=== PATIENT | female | born 1985 | race Hispanic/Latino ===

== ENCOUNTER → 2020-03-09 14:31 | Outpatient (CLI) | payer OTHER, MEDICAID, SELFPAY ==
--- NOTE | 2020-03-09 14:35 | DI.US.S_ITS ---
PROCEDURE: US OB <= 14 WEEKS FETUS INDICATIONS: Early dating viability OUTSIDE/PRIOR DATING DATA: Last menstrual period (LMP): Unknown . LMP-based estimated date of delivery (KAILYN): Unknown . First dating scan (date and location): 03/09/20 . Estimated date of delivery (KAILYN) from first dating scan: 10/05/20 . TECHNIQUE: Real-time scanning was performed of the fetus and maternal pelvic organs, with image documentation. Endovaginal scanning was also performed to better visualize the fetus and maternal ovaries. COMPARISON: None. FINDINGS: Embryo: Single living intrauterine fetus is present with a crown-rump length measuring 3.1 cm, 10 weeks 0 days. heart rate measures 162 beats per minute. Measurement variability in dating: +/- 4 weeks by LMP, +/- 7 days by mean sac diameter (use before 6 weeks gestation if crown-rump length not able to be measured), +/- 5 days by crown-rump length (up to 8 weeks 6 days gestation), +/- 7 days by crown-rump length (up to 13 weeks 6 days gestation). Maternal organs: Ovaries unremarkable bilaterally except for a presumed right-sided corpus luteum . Limited images through the kidneys demonstrate no hydronephrosis. IMPRESSION: Single living intrauterine fetus with a gestational age measuring 10 weeks and 0 days by today's ultrasound measurements corresponding to an KAILYN of 10/05/20. Dictated by: David Piña M.D. on 03/09/2020 at 16:55 Approved by: David Piña M.D. on 03/09/2020 at 16:56
== END ==
PROVIDERS: Family Provider Family Medicine; PCP Family Medicine; Referring Provider Family Medicine; Visit Provider Family Medicine
DX: Z34.81 Encounter for supervision of other normal pregnancy, first trimester (principal); Z3A.10 10 weeks gestation of pregnancy
CPT/HCPCS: 76801; 76817

== ENCOUNTER → 2020-04-01 16:51 | Outpatient (CLI) | payer MEDICAID, SELFPAY ==
[2020-04-01 17:38] LABS: Appearance Urine UA CLEAR; Bilirubin Urine UA NEGATIVE (NEGATIVE); Color Urine UA YELLOW; Glucose Urine UA NEGATIVE (Negative); Ketones Urine UA NEGATIVE (NEGATIVE); Leukocyte Esterase Urine UA NEGATIVE (NEGATIVE); Nitrite Urine UA NEGATIVE (Negative); Occult Blood Urine UA TRACE-INTACT (Negative); Protein Urine UA NEGATIVE (Negative); Urobilinogen Urine UA 0.2 E.U./dL (0.2)
[2020-04-01 17:38] LABS: Add Manual Diff / Slide Review NO; Basophils Absolute Auto 0 /uL (0-100); Basophils Percent Auto 0.4 % (0-2); Eosinophils Absolute Auto 100 /uL (0-450); Eosinophils Percent Auto 0.7 % (2-4); Hematocrit 37.5 % (36-46); Hemoglobin 12.7 g/dL (12.0-16.0); Lymphocytes Absolute Auto 2000 /uL (1100-4500); Lymphocytes Percent Auto 18.5 % (25-40); Mean Corpuscular HGB Conc 33.9 % (30-36); Mean Corpuscular Volume 85.8 fL (80-100); Monocytes Absolute Auto 700 /uL (0-900); Monocytes Percent Auto 6.1 % (3-14); Neutrophils Absolute Auto 7900 /uL (1500-7000); Neutrophils Percent Auto 74.3 % (50-75); Platelet Count 184 X10^3/uL (150-400); Red Blood Cell Count 4.37 X10^6/uL (4.0-5.2); Red Cell Distribution Width 12.7 % (11.6-14.8); White Blood Cell Count 10.6 X10^3/uL (4.5-11.0)
[2020-04-02 06:39] LABS: Varicella IgG Antibody 3244 index (Immune >165)
[2020-04-02 07:40] LABS: RPR Screen Non Reactive (Non Reactive)
[2020-04-02 15:30] LABS: Hepatitis B Surface Antigen NEGATIVE s/c (NEGATIVE); Rubella Antibody IgG 73.7 IU/mL (>15)
[2020-04-02 16:03] LABS: HIV 1 & 2 Ab/Ag 4th Gen Combo NEGATIVE (NEGATIVE); Hep C Virus Ab w/Reflex Quant NEGATIVE s/c (NEGATIVE)
== END ==
PROVIDERS: Family Provider Family Medicine; PCP Family Medicine; Referring Provider Family Medicine; Visit Provider Family Medicine
DX: Z34.81 Encounter for supervision of other normal pregnancy, first trimester (principal)
CPT/HCPCS: 36415; 80055; 81003; 86787; 86803; 86850; 86900; 86901; 87086; 87389

== ENCOUNTER → 2020-05-04 10:44 | Outpatient (CLI) | payer MEDICAID, SELFPAY ==
[2020-05-06 20:10] LABS: AFP, Serum 41.9 ng/mL (.); Calc Gestational Age EDD (.); Estriol, Free 1.04 ng/mL (.); Inhibin A, Dimeric 206.43 pg/mL (.); Maternal Ethnicity Other (.); Maternal Weight 229 lbs (.); Number of Fetuses No (.); OSBR Risk 1 IN 5748 (.); Results Report (.); Test Results *Screen Negative* (.); hCG, Serum 32480 mIU/mL (.)
== END ==
PROVIDERS: Family Provider Family Medicine; PCP Family Medicine; Referring Provider Family Medicine; Visit Provider Family Medicine
DX: N89.8 Other specified noninflammatory disorders of vagina (principal); Z3A.18 18 weeks gestation of pregnancy
CPT/HCPCS: 36415; 82105; 82677; 84702; 86336; 87210

== ENCOUNTER → 2020-05-19 10:43 | Outpatient (CLI) | payer MEDICAID, SELFPAY ==
--- NOTE | 2020-05-19 10:44 | DI.US.S_ITS ---
PROCEDURE: US OB >= 14 WEEKS FETUS INDICATIONS: ANATOMY OUTSIDE/PRIOR DATING DATA: First dating scan (date and location): 03/09/2020 . Estimated date of delivery (KAILYN) from first dating scan: 10/05/2020 . TECHNIQUE: Real-time scanning was performed of the fetus, with image documentation and biometric measurements. Endovaginal scanning: No COMPARISON: None. FINDINGS: General: A single living intrauterine gestation is present. Presentation: Vertex. Placenta: Placental position is left fundal , without previa. Amniotic fluid index: 15.8 cm, normal range is 5-24 cm. heart rate: 165 beats per minute. Maternal cervical canal: 4.2 cm long. Normal lower limit is 2.5 cm. biometrics: Biparietal diameter: 20 weeks Head circumference: 19 weeks 2 days Abdominal circumference: 20 weeks 5 days Femur length: 19 weeks 6 days Estimated gestational age from initial scan: 20 weeks 1 day Composite gestational age from present scan: 20 weeks Estimated weight and percentile: 340 g; 58th percentile Measurement variability for biometric dating: +/- 7 days from 14 weeks to 15 weeks 6 days gestation, +/- 10 days from 16 weeks to 21 weeks 6 days gestation, +/- 2 weeks from 22 weeks to 27 weeks 6 days gestation, +/- 3 weeks for 28 weeks gestation or later. weight reference: 4500 g or EFW >90/95% is considered macrosomia or large for gestational age. EFW <10% is small for gestational age. EFW 5% or less is considered intra-uterine growth restriction. Anatomic survey: Neuro: Ventricles are non-dilated at less than 10 mm. Cisterna magna is normal at 3-11 mm. Cerebellum is normal in size and morphology. Nuchal skin fold: Normal at less than 6 mm between 14-21 weeks gestational age. Face: Nose and lips, facial profile are normal. Spine: Spine not well seen Heart: 4-chambered heart is present, with normal ventricular outflow tracts. Solitary left ventricular intracardiac focus. Diaphragm: Diaphragm is intact. Stomach: Left-sided stomach is present. Kidneys: No hydronephrosis. Normal is less than 5 mm in 2nd trimester, less than 7 mm in 3rd trimester. Cord: 3-vessel cord has orthotopic insertion. Bladder: Normal in size. Extremities: All 4 extremities identified. IMPRESSION: 1. Normal interval growth. 2. Echogenic intracardiac focus: 1.4-1.8 fold likelihood of Down syndrome. If isolated finding, consider aneuploidy screening with cell-free DNA. If aneuploidy screen is negative, no further evaluation needed. 3. spine not well visualized; otherwise normal anatomy. Follow-up recommended. Dictated by: Waqas FAM Interpreted: Tavares Dolan MD on 05/19/2020 at 15:08 Approved by: Tavares Dolan M.D. on 05/19/2020 at 15:38
== END ==
PROVIDERS: Family Provider Family Medicine; PCP Family Medicine; Referring Provider Family Medicine; Visit Provider Family Medicine
DX: Z36.89 Encounter for other specified antenatal screening (principal); Z3A.20 20 weeks gestation of pregnancy
CPT/HCPCS: 76811

== ENCOUNTER → 2020-06-07 14:42 | Outpatient (CLI) | payer MEDICAID, SELFPAY ==
--- NOTE | 2020-06-07 14:44 | DI.US.S_ITS ---
PROCEDURE: US OB FOLLOW UP INDICATIONS: spine not visualized on anatomy scan OUTSIDE/PRIOR DATING DATA: Last menstrual period (LMP): Not available. LMP-based estimated date of delivery (KAILYN): Not available. First dating scan (date and location): 03/09/2020 at . Estimated date of delivery (KAILYN) from first dating scan: 10/06/2019. TECHNIQUE: Real-time scanning was performed of the fetus, with image documentation and biometric measurements. Endovaginal scanning: Multiple phone COMPARISON: [facility], OB >= 14 WEEKS FETUS, 05/19/2020, 10:52. [facility], OB <= 14 WEEKS FETUS, 03/09/2020, 15:00. FINDINGS: General: A single living intrauterine gestation is present. Presentation: Transverse. Placenta: Placental position is fundal, without previa. Amniotic fluid index: 14.5 cm, normal range is 5-24 cm; largest pocket 4.1 cm. heart rate: 144 beats per minute. Maternal cervical canal: 6.2 cm long. Normal lower limit is 2.5 cm. biometrics: Not performed Estimated gestational age from initial scan: 22 weeks 6 days Measurement variability for biometric dating: +/- 7 days from 14 weeks to 15 weeks 6 days gestation, +/- 10 days from 16 weeks to 21 weeks 6 days gestation, +/- 2 weeks from 22 weeks to 27 weeks 6 days gestation, +/- 3 weeks for 28 weeks gestation or later. weight reference: 4500 g or EFW >90/95% is considered macrosomia or large for gestational age. EFW <10% is small for gestational age. EFW 5% or less is considered intra-uterine growth restriction. Other: spine is well seen and normal. IMPRESSION: 1. A single living intrauterine gestation is redemonstrated. 2. Normal spine. Dictated by: Devonte Bauman M.D. on 06/08/2020 at 9:37 Approved by: Devonte Bauman M.D. on 06/08/2020 at 9:44
== END ==
PROVIDERS: Family Provider Family Medicine; PCP Family Medicine; Referring Provider Family Medicine; Visit Provider Family Medicine
DX: Z36.2 Encounter for other antenatal screening follow-up (principal); Z3A.22 22 weeks gestation of pregnancy
CPT/HCPCS: 76816

== ENCOUNTER → 2020-06-26 08:00 | Outpatient (CLI) | payer MEDICAID, SELFPAY ==
[2020-06-26 10:17] LABS: Hematocrit 33.1 % (36-46); Hemoglobin 11.1 g/dL (12.0-16.0)
[2020-06-26 10:42] LABS: GTT (PREG) 1 Hour PP 50gm Dose 161 mg/dL (76-139)
== END ==
PROVIDERS: Family Provider Family Medicine; PCP Family Medicine; Referring Provider Family Medicine; Visit Provider Family Medicine
DX: Z34.90 Encounter for supervision of normal pregnancy, unspecified, unspecified trimester (principal); Z3A.26 26 weeks gestation of pregnancy
CPT/HCPCS: 36415; 82950; 85014; 85018

== ENCOUNTER → 2020-07-02 07:00 | Outpatient (CLI) | payer MEDICAID, SELFPAY ==
[2020-07-02 08:27] LABS: Glucose Fasting Gestational 80 mg/dL (76-95)
[2020-07-02 09:32] LABS: Glucose 1 Hour Gest 167 mg/dL (76-180)
[2020-07-02 10:07] LABS: Glucose 2 Hour Gest 137 mg/dL (76-155)
[2020-07-02 10:31] LABS: Glucose Tol Interp,Gestational INTERPRETATION
[2020-07-02 11:20] LABS: Glucose 3 Hour Gest 122 mg/dL (76-140)
== END ==
PROVIDERS: Family Provider Family Medicine; PCP Family Medicine; Referring Provider Family Medicine; Visit Provider Family Medicine
DX: Z34.90 Encounter for supervision of normal pregnancy, unspecified, unspecified trimester (principal); R73.09 Other abnormal glucose
CPT/HCPCS: 36415; 82951; 82952

== ENCOUNTER 2020-07-13 14:21 | Outpatient (CLI) | payer MEDICAID, SELFPAY ==
--- NOTE | 2020-07-13 15:29 | P.TNLD_ITS ---
Visit Information Visit Information Date of evaluation: 07/13/20 Primary OB Provider: Jena Perez On-call OB Provider: Kimberly Ferris Reason for Evaluation: Yes non-stress test non-stress test reason: other (Arrhythmia in clinic with doppler) Vital Signs Vital Signs: T 36.6 BP 120/74 P 100 PFSH Medical History Migraine SAB (spontaneous ) (~2006) (spontaneous vaginal delivery) (~04/03/03) Surgical History H/O dilation and curettage (~06/2006) H/O wisdom tooth extraction (~2006) Family History Mother No problems noted. Father No problems noted. Grandmother Depression Grandfather Alcoholic Grandmother Hyperlipidemia CVA (cerebral vascular accident) Grandfather Diabetes mellitus Family/Other Alcoholic Family/Other Diabetes mellitus Social History marital status: number of children: 3 household members: spouse and children lives independently: Yes pets and animals: No education level: high school occupational status: unemployed current occupational exposures/hazards: No raul/bahai: Alevism special raul needs: No Smoking Status: Never smoker second hand exposure: No alcohol intake: former (pre- : occasional 2X/month) substance use type: does not use Evaluation Evaluation Baseline heart rate: 150 Variability: Moderate (11-25) monitor accelerations: Present Monitor Decelerations: Absent Category of Tracing: Reactive Comments: Sporadic dropped beats to 50's with immediate return to baseline Diagnosis, Plan/Disposition Final Diagnosis (1) 28 weeks gestation of : Status: Acute (2) arrhythmia affecting , antepartum: Status: Acute Plan/Disposition Plan: 34-year-old at 28 weeks gestation here for NST due to arrhythmia heard Doppler in clinic today. NST showed a baseline of 150 with moderate variability and age-appropriate accelerations. There were very brief dropped beats down to the 50s with immediate return to baseline. Patient has already been referred to maternal medicine for recommendations. OB Disposition: home
== END 2020-07-13 15:48 | disposition home or self-care (01) ==
LOC: LABOR 14:39 → OB 07-14 16:21
PROVIDERS: Family Provider Family Medicine; PCP Family Medicine; Referring Provider Family Medicine; Visit Provider Family Medicine
DX: O36.8330 Maternal care for abnormalities of the fetal heart rate or rhythm, third trimester, not applicable or unspecified (principal); O26.23 Pregnancy care for patient with recurrent pregnancy loss, third trimester; Z3A.28 28 weeks gestation of pregnancy
CPT/HCPCS: 59025; G0378; G0379

== ENCOUNTER → 2020-09-07 13:47 | Outpatient (CLI) | payer MEDICAID, SELFPAY ==
[2020-09-08 19:39] LABS: Strep Grp B PCR NEG for Grp B Strep
== END ==
PROVIDERS: Family Provider Family Medicine; PCP Family Medicine; Visit Provider Family Medicine
DX: Z34.90 Encounter for supervision of normal pregnancy, unspecified, unspecified trimester (principal); Z3A.36 36 weeks gestation of pregnancy
CPT/HCPCS: 87653

== ENCOUNTER → 2020-09-21 14:00 | Outpatient (ROUT) | payer OTHER, MEDICAID, SELFPAY ==
[2020-09-21 15:34] LABS: Creatinine Urine Random 28.1 mg/dL
[2020-09-21 15:41] LABS: Microalbumi Creatinin Ratio Ur 110.3 ug/mg CR (<30); Microalbumin Urine Random 3.1 mg/dL (0-1.6)
== END ==
PROVIDERS: Family Provider Family Medicine; PCP Family Medicine; Visit Provider Family Medicine
DX: O16.3 Unspecified maternal hypertension, third trimester (principal)
CPT/HCPCS: 82043; 82570

== ENCOUNTER 2020-09-21 14:13 | Outpatient (CLI) | payer MEDICAID, SELFPAY ==
[2020-09-21 15:09] LABS: Add Manual Diff / Slide Review NO; Basophils Absolute Auto 0 /uL (0-100); Basophils Percent Auto 0.6 % (0-2); Eosinophils Absolute Auto 200 /uL (0-450); Eosinophils Percent Auto 1.8 % (2-4); Hematocrit 35.1 % (36-46); Hemoglobin 11.6 g/dL (12.0-16.0); Lymphocytes Absolute Auto 1800 /uL (1100-4500); Lymphocytes Percent Auto 20.5 % (25-40); Mean Corpuscular HGB Conc 33.1 % (30-36); Mean Corpuscular Hemoglobin 28.2 PG (26-34); Mean Corpuscular Volume 85.2 fL (80-100); Monocytes Absolute Auto 900 /uL (0-900); Monocytes Percent Auto 9.9 % (3-14); Neutrophils Absolute Auto 5800 /uL (1500-7000); Neutrophils Percent Auto 67.2 % (50-75); Platelet Count 154 X10^3/uL (150-400); Red Blood Cell Count 4.12 X10^6/uL (4.0-5.2); Red Cell Distribution Width 14.6 % (11.6-14.8); White Blood Cell Count 8.7 X10^3/uL (4.5-11.0)
[2020-09-21 15:24] LABS: Alanine Aminotransferase 12 IU/L (<35); Albumin 3.6 g/dL (3.5-5.0); Alkaline Phosphatase 176 U/L (38-126); Aspartate Aminotransferase 19 IU/L (14-36); BUN Creatinine Ratio 17.5 (6-22); Bilirubin Total 0.3 mg/dL (0.2-1.3); Blood Urea Nitrogen 7 mg/dL (7-17); Calcium 10.1 mg/dL (8.4-10.2); Carbon Dioxide 21 mmol/L (22-32); Chloride 107 mmol/L (98-107); Estimated Glomerular Filt Rate > 60.0 mL/min (>60); Globulin 3.6 g/dL (1.7-4.1); Glucose 70 mg/dL (70-100); HEMOLYSIS < 15 (0-50); Sodium 135 mmol/L (137-145); Total Protein 7.2 g/dL (6.3-8.2)
--- NOTE | 2020-09-21 16:04 | P.TNLD_ITS ---
Visit Information Visit Information Date of evaluation: 09/21/20 Primary OB Provider: Jena Perez Reason for Evaluation: Yes non-stress test non-stress test reason: hypertens ion/pre-eclampsia Vital Signs Vital Signs: Serial blood pressures 119/87, 132/75 135/60, 132/74, 129/71 [facility] Medical History Migraine SAB (spontaneous ) (~2006) (spontaneous vaginal delivery) (~04/03/03) Surgical History H/O dilation and curettage (~06/2006) H/O wisdom tooth extraction (~2006) Family History Mother No problems noted. Father No problems noted. Grandmother Depression Grandfather Alcoholic Grandmother Hyperlipidemia CVA (cerebral vascular accident) Grandfather Diabetes mellitus Family/Other Alcoholic Family/Other Diabetes mellitus Social History marital status: number of children: 3 household members: spouse and children lives independently: Yes pets and animals: No education level: high school occupational status: unemployed current occupational exposures/hazards: No raul/holiness: Episcopal special raul needs: No Smoking Status: Never smoker second hand exposure: No alcohol intake: former (pre- : occasional 2X/month) substance use type: does not use Objective Labs Result Diagrams: 09/21/20 15:02 09/21/20 15:02 Labs: Laboratory Results - last 24 hr 09/21/20 09/21/20 15:02 15:02 WBC 8.7 RBC 4.12 Hgb 11.6 L Hct 35.1 L MCV 85.2 MCH 28.2 MCHC 33.1 RDW 14.6 Plt Count 154 Neut % (Auto) 67.2 Lymph % (Auto) 20.5 L [place] % (Auto) 9.9 Eos % (Auto) 1.8 L Baso % (Auto) 0.6 Neut # (Auto) 5800 Lymph # (Auto) 1800 [place] # (Auto) 900 Eos # (Auto) 200 Baso # (Auto) 0 Sodium 135 L Potassium 4.0 Chloride 107 Carbon Dioxide 21 L BUN 7 Creatinine 0.40 L Estimated GFR > 60.0 BUN/Creatinine Ratio 17.5 Glucose 70 Calcium 10.1 Total Bilirubin 0.3 AST 19 ALT 12 Alkaline Phosphatase 176 H Total Protein 7.2 Albumin 3.6 Globulin 3.6 Albumin/Globulin Ratio 1.0 Evaluation Evaluation Baseline heart rate: 135 Variability: Moderate (11-25) monitor accelerations: Present Monitor Decelerations: Absent Category of Tracing: Reactive Laboratory results: Laboratory Tests 09/21/20 09/21/20 15:02 15:02 WBC 8.7 RBC 4.12 Hgb 11.6 L Hct 35.1 L MCV 85.2 MCH 28.2 MCHC 33.1 RDW 14.6 Plt Count 154 Neut % (Auto) 67.2 Lymph % (Auto) 20.5 L [place] % (Auto) 9.9 Eos % (Auto) 1.8 L Baso % (Auto) 0.6 Neut # (Auto) 5800 Lymph # (Auto) 1800 [place] # (Auto) 900 Eos # (Auto) 200 Baso # (Auto) 0 Sodium 135 L Potassium 4.0 Chloride 107 Carbon Dioxide 21 L BUN 7 Creatinine 0.40 L Estimated GFR > 60.0 BUN/Creatinine Ratio 17.5 Glucose 70 Calcium 10.1 Total Bilirubin 0.3 AST 19 ALT 12 Alkaline Phosphatase 176 H Total Protein 7.2 Albumin 3.6 Globulin 3.6 Albumin/Globulin Ratio 1.0 Diagnosis, Plan/Disposition Final Diagnosis (1) 38 weeks gestation of : Status: Acute Plan/Disposition Plan: 34-year-old 38 weeks gestation evaluated in the center due to elevated blood pressures in clinic. All blood pressures in the center were normal. As precaution, preeclampsia labs were done and normal. Patient is completely asymptomatic. She will follow-up as scheduled next week or call for new symptoms of headache, worsening edema, vision changes or abdominal pain. OB Disposition: home
== END 2020-09-21 15:47 | disposition home or self-care (01) ==
LOC: LABOR 14:38 → OB 09-22 09:00
PROVIDERS: Family Provider Family Medicine; PCP Family Medicine; Referring Provider Family Medicine; Visit Provider Family Medicine
DX: O13.3 Gestational [pregnancy-induced] hypertension without significant proteinuria, third trimester (principal); Z3A.38 38 weeks gestation of pregnancy
CPT/HCPCS: 36415; 59025; 80053; 82043; 82570; 85025; G0378; G0379

== ENCOUNTER 2020-10-05 14:04 | Inpatient (IN) | payer MEDICAID, SELFPAY ==
[2020-10-05 14:45] LABS: Add Manual Diff / Slide Review NO; Basophils Absolute Auto 0 /uL (0-100); Basophils Percent Auto 0.5 % (0-2); Eosinophils Absolute Auto 100 /uL (0-450); Eosinophils Percent Auto 1.1 % (2-4); Hematocrit 34.3 % (36-46); Hemoglobin 11.4 g/dL (12.0-16.0); Lymphocytes Absolute Auto 1600 /uL (1100-4500); Lymphocytes Percent Auto 19.4 % (25-40); Mean Corpuscular HGB Conc 33.2 % (30-36); Mean Corpuscular Hemoglobin 28.4 PG (26-34); Mean Corpuscular Volume 85.6 fL (80-100); Monocytes Absolute Auto 700 /uL (0-900); Monocytes Percent Auto 9.2 % (3-14); Neutrophils Absolute Auto 5600 /uL (1500-7000); Neutrophils Percent Auto 69.8 % (50-75); Platelet Count 141 X10^3/uL (150-400); Red Blood Cell Count 4.01 X10^6/uL (4.0-5.2); Red Cell Distribution Width 14.8 % (11.6-14.8); White Blood Cell Count 8.1 X10^3/uL (4.5-11.0)
[2020-10-05 15:02] LABS: Alanine Aminotransferase 13 IU/L (<35); Albumin 3.6 g/dL (3.5-5.0); Alkaline Phosphatase 177 U/L (38-126); Aspartate Aminotransferase 19 IU/L (14-36); BUN Creatinine Ratio 25.6 (6-22); Bilirubin Total 0.3 mg/dL (0.2-1.3); Blood Urea Nitrogen 10 mg/dL (7-17); Calcium 9.6 mg/dL (8.4-10.2); Carbon Dioxide 22 mmol/L (22-32); Chloride 103 mmol/L (98-107); Estimated Glomerular Filt Rate > 60.0 mL/min (>60); Globulin 3.6 g/dL (1.7-4.1); Glucose 74 mg/dL (70-100); HEMOLYSIS < 15 (0-50); Potassium 4.1 mmol/L (3.4-5.1); Sodium 132 mmol/L (137-145); Total Protein 7.2 g/dL (6.3-8.2)
[2020-10-05 16:04] LABS: Protein (Total) Urine Random 20 mg/dL (0-12); Protein Creatinine Ratio Urine 0.83 GRAM/24H
--- NOTE | 2020-10-05 17:52 | P.HPOB_ITS ---
OB HPI Date/Time Date of admission: 10/05/20 Date Patient Seen: 10/05/20 Time Patient Seen: 17:00 History of Present Condition Chief complaint: Pre-eclampsia Narrative: Sirisha Stout is a 34 year old at 39 weeks and 2 days. She presented to clinic today for her regular OB check and was found to be hypertensive with blood pressure in the 150s over 90s x2. She was sent to the center where urine protein creatinine in ratio was elevated at 0.8, remaining labs were normal. Blood pressures were normal in the center. The decision was made to induce for preeclampsia without severe symptoms. She denies headaches, vision changes or right upper quadrant pain. She has had some lower extremity edema for the past several weeks which has not changed. was complicated by a arrhythmia noted at 28 weeks. She saw maternal medicine and the arrhythmia was not present at that time. No further workup was needed unless the arrhythmia recurred. Arrhythmia and did not recur. She strongly desires tubal ligation. The consent was signed at 34 weeks. OB history 04/03/2003 induction at 39 weeks and 5 days for gestational hypertension, 9 hour labor, of a 6 lb 5 oz male at [facility]. Breast-fed 8 months. 04/26/06 SAB 8 weeks 06/24/06 SAB at 10 weeks 07/12/07 elective induction at 40 weeks, 6 hour labor, of a 8 lb 10 oz male at [facility], breast-fed 6 months. 01/18/14 at 38 weeks, 8 hour labor, 7 lb 9 oz female at [facility], breast-fed 24 months. Indications Indication for induction OB: medical complication (Preeclampsia without severe features) History of Present care: good care, initiated at week # (13), number of visits (13) and pounds weight gain (24) Dating criteria: based on 1st trimester US only Ultrasounds: normal mid trimester US Obstetrical complications: preeclampsia Preadmission Labs Blood type: O (+) positive -: Antibody screen: negative, GBS status: negative, HBsAG: negative, HIV: negative and RPR/VDLR: negative HCT: 34.3 HCAB: negative PAP: Normal Quad screen: Normal 1 hr GTT: 161 3 hr GTT: 1 hr (167), 2 hr (137) and 3 hr (122) Fasting blood glucose: 80 Evaluation Evaluation Baseline heart rate: 130 Variability: Moderate (11-25) monitor accelerations: Absent Monitor Decelerations: Absent Category of Tracing: Reactive Laboratory results: Laboratory Tests 10/05/20 10/05/20 10/05/20 14:38 14:38 14:40 WBC 8.1 RBC 4.01 Hgb 11.4 L Hct 34.3 L MCV 85.6 MCH 28.4 MCHC 33.2 RDW 14.8 Plt Count 141 L Neut % (Auto) 69.8 Lymph % (Auto) 19.4 L [place] % (Auto) 9.2 Eos % (Auto) 1.1 L Baso % (Auto) 0.5 Neut # (Auto) 5600 Lymph # (Auto) 1600 [place] # (Auto) 700 Eos # (Auto) 100 Baso # (Auto) 0 Sodium 132 L Potassium 4.1 Chloride 103 Carbon Dioxide 22 BUN 10 Creatinine 0.39 L Estimated GFR > 60.0 BUN/Creatinine Ratio 25.6 H Glucose 74 Calcium 9.6 Total Bilirubin 0.3 AST 19 ALT 13 Alkaline Phosphatase 177 H Total Protein 7.2 Albumin 3.6 Globulin 3.6 Albumin/Globulin Ratio 1.0 U Random Total Protein 20 H Urine Creatinine 24.0 Protein/Creatinin Ratio 0.83 [facility] Medical History Migraine SAB (spontaneous ) (~2006) (spontaneous vaginal delivery) (~04/03/03) Surgical History H/O dilation and curettage (~06/2006) H/O wisdom tooth extraction (~2006) Family History Mother No problems noted. Father No problems noted. Grandmother Depression Grandfather Alcoholic Grandmother Hyperlipidemia CVA (cerebral vascular accident) Grandfather Diabetes mellitus Family/Other Alcoholic Family/Other Diabetes mellitus Social History marital status: number of children: 3 household members: spouse and children lives independently: Yes pets and animals: No education level: high school occupational status: unemployed current occupational exposures/hazards: No raul/anabaptist: Jainism special raul needs: No Smoking Status: Never smoker second hand exposure: No alcohol intake: former (pre- : occasional 2X/month) substance use type: does not use Meds Home Medications and Allergies Home Medications Medication Instructions Recorded Confirmed Type prenat.vits,may,[id number] 1 tab PO DAILY #90 tab 04/01/20 09/14/20 Rx Allergies Allergy/AdvReac Type Severity Reaction Status Date / Time No Known Drug Allergies Allergy Verified 09/14/20 13:27 Review of Systems Review of Systems ROS: Yes All systems reviewed with the patient and are negative except as otherwise documented Exam Vital Signs (past 8 hours): temperature 36.8? blood pressure 119/63 heart rate 86 Const General: healthy appearing and comfortable HENMT Head: normal to inspection Ears: hearing grossly normal bilaterally Eyes General: appearance normal, both eyes and all related structures Neck Neck: normal visual inspection Resp Effort & Inspection: normal respiratory effort Auscultation: clear to auscultation bilaterally Cardio Rate: regular rate Rhythm: regular rhythm Heart Sounds: no murmurs GI Other: Gravid External Female Exam: normal external appearance Manual OB Exam: dilated fingertip, effaced 50% and station high Uterus Location (Fundal Height): 41 Presentation: vertex Estimated Weight (lbs): 8 Back/Spine/Pelvis Back: normal to inspection Skin General: no rashes or lesions noted Extrem General: normal to inspection and edema ( trace edema bilaterally) Objective Labs Result Diagrams: 10/05/20 14:38 10/05/20 14:38 Labs: Laboratory Results - last 24 hr 10/05/20 10/05/20 10/05/20 14:38 14:38 14:40 WBC 8.1 RBC 4.01 Hgb 11.4 L Hct 34.3 L MCV 85.6 MCH 28.4 MCHC 33.2 RDW 14.8 Plt Count 141 L Neut % (Auto) 69.8 Lymph % (Auto) 19.4 L [place] % (Auto) 9.2 Eos % (Auto) 1.1 L Baso % (Auto) 0.5 Neut # (Auto) 5600 Lymph # (Auto) 1600 [place] # (Auto) 700 Eos # (Auto) 100 Baso # (Auto) 0 Sodium 132 L Potassium 4.1 Chloride 103 Carbon Dioxide 22 BUN 10 Creatinine 0.39 L Estimated GFR > 60.0 BUN/Creatinine Ratio 25.6 H Glucose 74 Calcium 9.6 Total Bilirubin 0.3 AST 19 ALT 13 Alkaline Phosphatase 177 H Total Protein 7.2 Albumin 3.6 Globulin 3.6 Albumin/Globulin Ratio 1.0 U Random Total Protein 20 H Urine Creatinine 24.0 Protein/Creatinin Ratio 0.83 Assessment and Plan Assessment and Plan Assessment and Plan narrative: This is a 34-year-old at 40 weeks gestation meeting criteria for preeclampsia without severe symptoms. Blood pressure has been monitored closely this with normal labs until today when urine protein creatinine ratio came back elevated at 0.8. Blood pressures have intermittently been elevated in clinic however all blood pressures have been normal in the center today. She is without any symptoms of headache, vision changes, right upper quadrant pain or worsening edema (she has had edema in the third trimester though not severe). Sykes score today is 5. Risks and benefits of induction reviewed. Strongly recommended induction now due to preeclampsia verses continuation of the . She is familiar with induction as she was induced for 2 of her 3 past deliveries. Reviewed increase risk of vacuum, forceps were with induction. Consent signed. Will proceed with Cervidil now followed by pitocin if needed. Monitor blood pressures though all have been normal thus far. She also desires tubal ligation. Consent was signed well in advance. Discussed with Dr. Yee who is vascular surgeon tomorrow. Will notify Dr. Yee after delivery to determine timing with the OR.
[2020-10-05 18:16] LABS: COVID19 - ADMIT (NP swab/PCR) Negative (Negative)
[2020-10-05 18:25] LABS: Add Manual Diff / Slide Review NO; Basophils Absolute Auto 0 /uL (0-100); Basophils Percent Auto 0.5 % (0-2); Eosinophils Absolute Auto 100 /uL (0-450); Eosinophils Percent Auto 0.6 % (2-4); Hemoglobin 11.6 g/dL (12.0-16.0); Lymphocytes Absolute Auto 1600 /uL (1100-4500); Lymphocytes Percent Auto 16.2 % (25-40); Mean Corpuscular HGB Conc 34.2 % (30-36); Mean Corpuscular Hemoglobin 28.9 PG (26-34); Mean Corpuscular Volume 84.6 fL (80-100); Monocytes Absolute Auto 700 /uL (0-900); Monocytes Percent Auto 6.9 % (3-14); Neutrophils Absolute Auto 7500 /uL (1500-7000); Neutrophils Percent Auto 75.8 % (50-75); Platelet Count 140 X10^3/uL (150-400); Red Blood Cell Count 4.02 X10^6/uL (4.0-5.2); Red Cell Distribution Width 14.8 % (11.6-14.8); White Blood Cell Count 9.9 X10^3/uL (4.5-11.0)
[2020-10-05] MEDS: DINOPROSTONE VAG (CERVIDIL) 10 MG VAG (18:39)
[2020-10-05] MEDS: CALCIUM CARBONATE 500 MG TAB 1000 MG PO (21:09)
[2020-10-05 22:41] VITALS: BP 136/77
[2020-10-06] MEDS: CALCIUM CARBONATE 500 MG TAB 1000 MG PO ×2 (00:48→08:07)
--- NOTE | 2020-10-06 07:30 | P.PNOB_ITS ---
Date/Time Date Patient Seen: 10/06/20 Time Patient Seen: 07:30 Pain Control Pain control: tolerating well Comments: No complaints from patient. Cervidil fell out about 4:30 this morning. She is feeling contractions but less intense since Cervidil fell out. Denies FELIPE though she had a mild FELIPE during the night. She slept very little, maybe 2 hours. Still desires tubal ligation after delivery. Pelvic Exam Dilation (cm): 3 Effacement (%): 70 station: -3 Amniotic membrane status: Intact Contractions Contraction frequency (min): 5 Status status: Category l Heart Rate Baseline: 130 Monitor Accelerations: Present Monitor Decelerations: Absent Monitor Variability: Moderate Assessment and Plan Plan: begin patient augmentation Comments: 34 year old at 40 weeks and 1 day here for induction for pre- eclampsia without severe features. She received Cervidil overnight with good cervical change. Syeks score this morning is 8. She had a couple elevated blood pressures overnight but no sustained severe range pressures requiring medication and she is asymptomatic with normal reflexes. Repeat pre-eclampsia labs this morning. Will start pitocin. Epidural upon request. Anticipate . Will notify Dr. Yee after delivery for tubal ligation.
[2020-10-06] MEDS: LACTATED RINGERS 1,000 ML 100 ML IV (08:14)
[2020-10-06] MEDS: OXYTOCIN PREMIX 30 UNIT/500 ML PLAST..BAG IV (08:16)
--- NOTE | 2020-10-06 10:38 | PM.OBPNLAB ---
Date/Time Date Patient Seen: 10/06/20 Time Patient Seen: 10:30 Pain Control Pain control: tolerating well Comments: Feeling contractions a bit more, rates pain 6/10. Considering an epidural soon. Pelvic Exam Dilation (cm): 4 Effacement (%): 70 station: -3 Amniotic membrane status: Ruptured (Small amount of clear fluid) Contractions Pitocin rate (mU/min): 6 Contraction frequency (min): 3 Status status: Category l Heart Rate Baseline: 130 Monitor Accelerations: Present Monitor Decelerations: Absent Monitor Variability: Moderate Assessment and Plan Assessment: induction ongoing Comments: Making progress on pitocin, AROM with clear fluid. Patient would like an epidural in the near future. Anticipate . Blood pressures mildly elevated though not severe range requiring medication.
[2020-10-06 11:02] LABS: Add Manual Diff / Slide Review NO; Basophils Absolute Auto 0 /uL (0-100); Basophils Percent Auto 0.4 % (0-2); Eosinophils Absolute Auto 100 /uL (0-450); Eosinophils Percent Auto 0.5 % (2-4); Hematocrit 35.1 % (36-46); Hemoglobin 11.7 g/dL (12.0-16.0); Lymphocytes Absolute Auto 1300 /uL (1100-4500); Lymphocytes Percent Auto 12.8 % (25-40); Mean Corpuscular HGB Conc 33.4 % (30-36); Mean Corpuscular Hemoglobin 28.5 PG (26-34); Mean Corpuscular Volume 85.3 fL (80-100); Monocytes Absolute Auto 800 /uL (0-900); Monocytes Percent Auto 7.3 % (3-14); Neutrophils Absolute Auto 8200 /uL (1500-7000); Platelet Count 142 X10^3/uL (150-400); Red Blood Cell Count 4.11 X10^6/uL (4.0-5.2); Red Cell Distribution Width 14.6 % (11.6-14.8); White Blood Cell Count 10.4 X10^3/uL (4.5-11.0)
[2020-10-06 11:17] LABS: Alanine Aminotransferase 14 IU/L (<35); Albumin 3.6 g/dL (3.5-5.0); Albumin Globulin Ratio 1.1 (1.0-2.8); Alkaline Phosphatase 183 U/L (38-126); Aspartate Aminotransferase 21 IU/L (14-36); Bilirubin Total 0.4 mg/dL (0.2-1.3); Blood Urea Nitrogen 8 mg/dL (7-17); Calcium 10.4 mg/dL (8.4-10.2); Carbon Dioxide 24 mmol/L (22-32); Chloride 104 mmol/L (98-107); Estimated Glomerular Filt Rate > 60.0 mL/min (>60); Globulin 3.4 g/dL (1.7-4.1); Glucose 86 mg/dL (70-100); HEMOLYSIS < 15 (0-50); Sodium 134 mmol/L (137-145)
--- NOTE | 2020-10-06 17:39 | PM.OBPRVD ---
Labor & Delivery Delivery date: 10/06/20 Cervical ripening method: per Cervidil protocol Induction method: per pitocin protocol Delivery augmentation: rupture of membranes Delivery monitor: external FHT Route of delivery: forceps (Failure to descend, direct OP) Indication for instrumentation: other ( malposition) L&D Laceration Description: Vaginal - 2nd Degree Delivery repair: vicryl and chromic Estimated blood loss (mL): 400 Anesthesia Type: Epidural Narrative: This is a 34-year-old to was induced for preeclampsia without severe features at 40 weeks and 1 day. She received cervical ripening overnight followed by Pitocin today. STAGE I: Labor Patient was started on Pitocin per protocol. Active labor began at 10:26 AM after artificial rupture membranes with clear fluid. Patient on on received an epidural. heart tones were category 1 throughout stage I. Stage I duration 4 hours and 33 minutes. STAGE II: Delivery She was complete at 14:59. After pushing for 2 hours with minimal descent, Dr. Yee was consulted for possible vacuum or forceps assisted delivery. Vacuum was placed however good suction not achieved due to hair on head. The decision was made to proceed with forceps. Dr. Yee applied forceps and brought down to the perineum. Presentation was direct OPP. Forceps were removed. The head was delivered in a nuchal cord x1 reduced. Remainder of the body delivered without difficulty. was placed on mother's abdomen. Cord was clamped and cut after 1 minute delay. Apgars were 8 and 9 at 1 and 5 minutes. No resuscitation of the required. The second stage of labor lasted 2 hours and 9 minutes. STAGE III: Placenta/Cord Placenta delivered at 17:19 after active management and appeared intact with a three-vessel cord. There was a long second-degree posterior vaginal laceration with slight tear to the rectal sphinter sheath. Dr. Yee placed a [id number] stitch with 0 Vicryl to the rectal sphincter sheath. Vaginal laceration was repaired with 3-0 chromic in the usual fashion with good hemostasis. Fundus was firm below umbilicus after repair. EBL: 400 mL. Needle and sponge counts were correct. The vagina was inspected and no items were left in situ. Patient was doing well with Rosaura, her and at bedside. Dr. Yee was also consulted for tubal ligation. Due to several cases in the OR this evening, patient will go for tubal ligation in the morning. She will be NPO after midnight. Consent was signed over a month in advance and is in her chart. Baby 1: Infant gender: Female Presentation: vertex Position: Occiput Posterior Placenta delivery description: Spontaneous Cord Vessel Description: 3 Vessels and Nuchal Cord (loose nuchal cord x1, reduced) score (1 min): 8 score (5 min): 9 weight: 8 lb 9.286 oz Plan for aftercare: Routine care
--- NOTE | 2020-10-06 17:45 | P.CONS_ITS ---
History of Present Illness Consult details Date Patient Seen: 10/06/20 Time Patient Seen: 16:45 Chief complaint: Preeclampsia Reason for consult: Second-stage arrest Requesting provider: Jena Perez Narrative: Patient is a 34-year-old 6 para 3 at 39 weeks who was admitted for induction for elevated blood pressure and increased protein to creatinine ratio with no other were preeclamptic symptoms. Patient had a increased 1 hour glucose normal 3 hour GTT. She had delivered a prior 8 lb 10 oz baby. The patient received an epidural catheter for pain control in labor. The patient was complete and pushing for over 2 hours and she now has maternal exhaustion. I was asked to consult for possible vacuum or forceps placement to expedite delivery. Meds Home Medications and Allergies Home Medications Medication Instructions Recorded Confirmed Type prenat.vits,may,[id number] 1 tab PO DAILY #90 tab 04/01/20 10/05/20 Rx Allergies Allergy/AdvReac Type Severity Reaction Status Date / Time No Known Drug Allergies Allergy Verified 10/05/20 22:46 Exam Narrative Exam Narrative: On exam the patient is fully dilated. The fetus was in an OP, slightly asynclitic position. Patient was agreeable to try vacuum extraction. The vacuum was placed but due to the hair it would not stay in place so decision was made to place forceps which the patient was agreeable to. The f orceps were placed and the baby was delivered with 1 contraction. A loose nuchal cord was released. The infant was placed by Dr. Perez on the maternal abdomen. I remained to [facility] and the tear after that the placenta delivered. There was a midline posterior tear that was second-degree with a slight tear to the rectal sphincter sheath anteriorly which was repaired with a figure of [address] Perez finished the repair. Both and mother doing well. The patient does want to proceed with a tubal ligation. She will be NPO after midnight for bilateral mini laparotomy tubal ligation in the a.m.. Objective Labs Result Diagrams: 10/06/20 10:50 10/06/20 10:50 Labs: Laboratory Results - last 24 hr 10/05/20 10/05/20 10/05/20 16:55 18:14 18:14 WBC 9.9 RBC 4.02 Hgb 11.6 L Hct 34.0 L MCV 84.6 MCH 28.9 MCHC 34.2 RDW 14.8 Plt Count 140 L Neut % (Auto) 75.8 H Lymph % (Auto) 16.2 L Wilkinson % (Auto) 6.9 Eos % (Auto) 0.6 L Baso % (Auto) 0.5 Neut # (Auto) 7500 H Lymph # (Auto) 1600 Wilkinson # (Auto) 700 Eos # (Auto) 100 Baso # (Auto) 0 Sodium Potassium Chloride Carbon Dioxide BUN Creatinine Estimated GFR BUN/Creatinine Ratio Glucose Calcium Total Bilirubin AST ALT Alkaline Phosphatase Total Protein Albumin Globulin Albumin/Globulin Ratio SARS-CoV-2 (PCR) Negative Blood Type O Positive Antibody Screen Negative 10/06/20 10/06/20 10:50 10:50 WBC 10.4 RBC 4.11 Hgb 11.7 L Hct 35.1 L MCV 85.3 MCH 28.5 MCHC 33.4 RDW 14.6 Plt Count 142 L Neut % (Auto) 79.0 H Lymph % (Auto) 12.8 L Wilkinson % (Auto) 7.3 Eos % (Auto) 0.5 L Baso % (Auto) 0.4 Neut # (Auto) 8200 H Lymph # (Auto) 1300 Wilkinson # (Auto) 800 Eos # (Auto) 100 Baso # (Auto) 0 Sodium 134 L Potassium 4.0 Chloride 104 Carbon Dioxide 24 BUN 8 Creatinine 0.50 L Estimated GFR > 60.0 BUN/Creatinine Ratio 16.0 Glucose 86 Calcium 10.4 H Total Bilirubin 0.4 AST 21 ALT 14 Alkaline Phosphatase 183 H Total Protein 7.0 Albumin 3.6 Globulin 3.4 Albumin/Globulin Ratio 1.1 SARS-CoV-2 (PCR) Blood Type Antibody Screen Assessment & Plan Assessment and plan (1) Maternal exhaustion complicating labor and delivery: Status: Acute (2) Sterilization consult: Status: Acute Assessment & Plan narrative: Patient with maternal exhaustion with second-stage arrest secondary to OP position. Forceps were used to assist delivery. Patient is requesting tubal ligation. She will be NPO after midnight. Plan is for mini laparotomy tubal ligation in the a.m..
[2020-10-06] MEDS: ACETAMINOPHEN 325 MG TABLET 650 MG PO (21:12)
--- NOTE | 2020-10-07 | PATH_ITS ---
[facility] Accession Number: [id number] . 01 Material submitted: . fallopian tube - BILATERAL FALLOPIAN TUBES . 02 Diagnosis: Bilateral Fallopian Tubes: Complete cross-sections of segments of fallopian tube x2; negative for atypia or malignancy. V 10/12/2020 1509 Local . 02 Electronically signed: . Concha Velazquez MD, Pathologist NPI- [id number] . 01 Gross description: . The specimen is received in formalin and labeled with bilateral fallopian tubes. It consists of two unoriented sections of fallopian tube. The first tube measures 2.1 cm in length by 0.6 cm in diameter, and is covered in purple-jorge, diffusely congested serosa. Sectioning reveals yellow-jorge, unremarkable mucosa, a lumen that dilates to 0.2 cm in diameter, and gr that average 0.3 cm in thickness. . The second tube measures 2.7 cm in length by 0.6 cm in diameter, and is covered in pink-jorge, diffusely congested serosa. Sectioning reveals yellow-jorge, unremarkable mucosa, a pinpoint lumen, and gr that average 0.2 cm in thickness. Fimbria are not grossly apparent. The specimen is submitted entirely. . Summary of Sections: A1 = First tube, serially sectioned, 5 pieces. A2 = Second tube, serially sectioned, 6 pieces. ([id number]) /MRV 10/08/2020 1733 Local . 02 Pathologist provided ICD-10: Z30.2 . 02 CPT . 888306 Performed at: 01 [facility] [address] [place] [address] [address] [facility], [place], [place] [id number] MD Dennis Ren MD Phone: [phone] Performed at: 02 [facility] [place] [id number] [place] [id number] MD Shazia Yanez MD Phone: [phone]
[2020-10-07] MEDS: ACETAMINOPHEN 325 MG TABLET 650 MG PO ×2 (03:24→12:31)
[2020-10-07] MEDS: LACTATED RINGERS 1,000 ML 100 ML IV (07:00)
--- NOTE | 2020-10-07 07:04 | PM.PREOP ---
Pre-operative Note COVID-19 COVID-19 status: Negative Result date/Date tested (Pos, Neg/Pending): 10/05/20 Interval Note History & Physical reviewed/Exam performed by Physician: Yes Changes to H&P: No
[2020-10-07 07:20] LABS: Add Manual Diff / Slide Review NO; Basophils Absolute Auto 100 /uL (0-100); Basophils Percent Auto 0.5 % (0-2); Eosinophils Absolute Auto 100 /uL (0-450); Eosinophils Percent Auto 0.9 % (2-4); Hematocrit 33.3 % (36-46); Hemoglobin 11.1 g/dL (12.0-16.0); Lymphocytes Absolute Auto 2100 /uL (1100-4500); Lymphocytes Percent Auto 19.8 % (25-40); Mean Corpuscular HGB Conc 33.4 % (30-36); Mean Corpuscular Hemoglobin 28.6 PG (26-34); Mean Corpuscular Volume 85.6 fL (80-100); Monocytes Absolute Auto 1000 /uL (0-900); Monocytes Percent Auto 9.1 % (3-14); Neutrophils Absolute Auto 7400 /uL (1500-7000); Neutrophils Percent Auto 69.7 % (50-75); Platelet Count 142 X10^3/uL (150-400); Red Blood Cell Count 3.89 X10^6/uL (4.0-5.2); Red Cell Distribution Width 14.8 % (11.6-14.8); White Blood Cell Count 10.7 X10^3/uL (4.5-11.0)
[2020-10-07 07:33] LABS: Alanine Aminotransferase 15 IU/L (<35); Albumin 3.3 g/dL (3.5-5.0); Alkaline Phosphatase 161 U/L (38-126); Aspartate Aminotransferase 35 IU/L (14-36); BUN Creatinine Ratio 20.3 (6-22); Bilirubin Total 0.3 mg/dL (0.2-1.3); Blood Urea Nitrogen 12 mg/dL (7-17); Calcium 9.5 mg/dL (8.4-10.2); Carbon Dioxide 23 mmol/L (22-32); Chloride 105 mmol/L (98-107); Estimated Glomerular Filt Rate > 60.0 mL/min (>60); Globulin 3.2 g/dL (1.7-4.1); Glucose 86 mg/dL (70-100); HEMOLYSIS < 15 (0-50); Sodium 133 mmol/L (137-145); Total Protein 6.5 g/dL (6.3-8.2)
[2020-10-07] MEDS: CEFAZOLIN 1 GM VIAL 2 GM IV (08:12)
--- NOTE | 2020-10-07 08:18 | SUR.OPER ---
Supine on padded OR bed, head on pillow, arms secured on padded arm boards at <90 degrees abduction, legs uncrossed, safety belt at thigh, tape over blanket over lower legs.
[2020-10-07] MEDS: BUPIVACAINE 0.5% (PF) VIAL 30 ML INJ (08:23)
[2020-10-07] MEDS: EPINEPHrine 1 MG/ML 0.15 MG SUBCUT (08:24)
[2020-10-07 08:39] VITALS: BP 103/60; PULSE 100; RESP 16; TEMP 35.8; O2SAT 99
[2020-10-07 08:44] VITALS: BP 119/67; PULSE 93; RESP 16; O2SAT 100
[2020-10-07 08:49] VITALS: BP 124/63; PULSE 98; RESP 12; TEMP 36.7; O2SAT 100
[2020-10-07 08:54] VITALS: BP 124/70; PULSE 87; RESP 19; TEMP 36.6; O2SAT 98
--- NOTE | 2020-10-07 08:59 | P.OP_ITS ---
Operative Date/Time/Diagnoses Date of procedure: 10/07/20 Time of procedure: 08:59 Pre-op diagnosis: Sterilization Post-op diagnosis: same Procedure & Clinicians Procedure: Mini-laparotomy bilateral tubal ligation Same procedure as scheduled: Yes Indications: Sterilization Surgeon: Lacie Yee Click Yes if Unassisted: Yes Anesthesia Type: Spinal Operative Notes Findings: Normal fallopian tubes bilateral Closure Type: primary Specimen(s): other (Bilateral segments of fallopian tubes) Estimated Blood Loss (mL): 2 Blood products transfused: none Procedure in detail: Patient was brought to the operating room where she underwent a spinal anesthesia. She was placed in a supine position. She was prepped and draped in the usual sterile fashion. She received 2 g Ancef prior to beginning of the case. Warming was with blankets. Pulsatile stockings in place and functioning. A check system was reviewed with the staff in the room prior to beginning of the case. An incision was made in the umbilicus with a scalpel. The incision was carried down to the fascial layer with blunt dissection. The fascia was incised transversely and the perineum entered without damage to internal structures. The left fallopian tube was grasped with the Jesus and tied off x2 with 0 plain suture. The intervening section removed with scissors and adequate hemostasis noted. The tube was allowed to fall back into the abdomen. The same procedure was performed on the right side. The fascial layer was closed with 0 Vicryl suture. Skin was closed with 4-0 Vicryl suture. Counts of instruments and sponges were correct. Patient went to recovery room in good condition. Complications: none Post-operative Condition: stable Disposition: other ([facility]ly [facility]) Plan for aftercare: Home after recovery from surgery
--- NOTE | 2020-10-07 09:01 | SUR.PHASEI ---
Staelsa post op, report called pt transported, new deana pad placed, minimal blood on pad.
--- NOTE | 2020-10-07 09:13 | SUR.PHASEI ---
Pt left in stable condition.
[2020-10-07] MEDS: DOCUSATE 100 MG CAPSULE PO (12:32)
[2020-10-07] MEDS: IBUPROFEN 600 MG TABLET PO (17:08)
[2020-10-07] MEDS: DERMOPLAST SPRAY 20% 60 ML 1 SPRAY TOP (17:09)
--- NOTE | 2020-10-07 17:11 | P.DS_ITS ---
Discharge Providers Provider Date of admission: 10/05/20 14:04 Discharge Date: 10/07/20 Primary care physician: Jena Perez DO Consults: 10/07/20 17:43 Consult to M[facility] [employer] Routine Comment: Discharge provider: Jena Perez DO Summary Hospital Course Date Patient Seen: 10/07/20 Time Patient Seen: 17:00 Diagnoses: 40 weeks of Forceps assisted vaginal delivery Pre-eclampsia without severe features tubal ligation Hospital Course: This is a 34-year-old now P4 after forceps assisted vaginal de livery on 10/06/20 at 40 weeks and 1 day gestation. Patient was brought in for induction due to preeclampsia without severe features. She met criteria due to hypertension and elevated urine protein creatinine ratio. She did not have persistent severe range blood pressures or severe symptoms to necessitate magnesium. She progressed well through labor and went on to receive an epidural however pushed for [address] Yee was consulted for possible assisted delivery. Vacuum was attempted however could not achieve good suction due to hair on the baby's head. Dr. Yee then applied forceps and successfully delivered the infant in the direct occiput posterior position. did well after delivery. Patient sustained a posterior vaginal tear with slight extension into the rectal sphincter. Dr. Yee placed a figure of 8 stitch over the rectal sphincter and the vaginal laceration was repaired in the usual fashion. patient underwent a bilateral tubal ligation with Dr. Yee without complications. Remaining course was uncomplicated. B reast-feeding was going well. She was eating, ambulating, voiding and passing flatus. Lochia was light to moderate. Pain controlled with Tylenol only. Blood pressures were in the 120s to 130s over 80s to 90 and patient denied any symptoms of preeclampsia. We will see her for a blood pressure check when she comes into clinic with her in 3 days. Advised patient to call for fevers, severe pain or bleeding through more than a pad an hour. She is also quite familiar with the symptoms of preeclampsia and will let us know if she develops headaches, worsening edema, right upper quadrant pain or vision changes. Peripartum Data Delivery Method: Assisted Delivery (Forceps for maternal exhaustion and malpresentation) complications: none 1: Gender: Female Disposition of : home Discharge Diagnosis (1) Maternal exhaustion complicating labor and delivery: Status: Acute (2) Low forceps delivery, delivered, current hospitalization: Status: Acute (3) 40 weeks gestation of : Status: Acute (4) Sterilization: Status: Acute Status at Discharge Cognitive/behavioral status at discharge: at baseline, oriented Functional status at discharge: independent ambulation Overall status at discharge: patient is progressing back to baseline Time Spent with Patient Time attestation: Total time spent providing and/or coordinating discharge services: Time spent: Less than 30 minutes Objective Labs Result Diagrams: 10/07/20 06:46 10/07/20 06:46 Labs: Laboratory Results - last 24 hr 10/07/20 10/07/20 06:46 06:46 WBC 10.7 RBC 3.89 L Hgb 11.1 L Hct 33.3 L MCV 85.6 MCH 28.6 MCHC 33.4 RDW 14.8 Plt Count 142 L Neut % (Auto) 69.7 Lymph % (Auto) 19.8 L Woodruff % (Auto) 9.1 Eos % (Auto) 0.9 L Baso % (Auto) 0.5 Neut # (Auto) 7400 H Lymph # (Auto) 2100 Woodruff # (Auto) 1000 H Eos # (Auto) 100 Baso # (Auto) 100 Sodium 133 L Potassium 4.0 Chloride 105 Carbon Dioxide 23 BUN 12 Creatinine 0.59 Estimated GFR > 60.0 BUN/Creatinine Ratio 20.3 Glucose 86 Calcium 9.5 Total Bilirubin 0.3 AST 35 ALT 15 Alkaline Phosphatase 161 H Total Protein 6.5 Albumin 3.3 L Globulin 3.2 Albumin/Globulin Ratio 1.0 Exam Vital Signs (past 8 hours): Oxygen Delivery Method Room Air General: Awake and alert, no acute distress. HEENT: NCAT, EOMI, moist oral mucosa CV: Regular rate and rhythm, no murmurs, rubs or gallops Lungs: CTAB, no wheezes, rales, or rhonchi Abdomen: Large bandage over umbilicus. Soft, nontender; bowel tones active; uterus firm at umbilicus. Extremities: Warm, trace edema bilaterally Discharge Plan Discharge Plan Patient Disposition: Home Provider Discharge Comment: Call for fevers, severe pain, bleeding through more than a pad an hour, headaches or right upper quadrant abdominal pain Discharge orders & Medications Prescriptions: New docusate sodium [DOK] 100 mg Capsule 100 mg PO DAILY Qty: 30 RF: 0 ibuprofen 600 mg Tablet 600 mg PO Q6HR PRN (Reason: Pain, Mild (1-3)) Qty: 30 RF: 0 Continued prenat.vits,may,[id number] Tablet 1 tab PO DAILY Qty: 90 RF: 3 Follow up/Referrals: Jena Perez DO [Primary Care Provider] - 6 Weeks ([place] make an appointment to see in 6 weeks) Visit Report/Discharge Packet Instructions: DI for Tubal Ligation, DI for Labor and Delivery, Vaginal Visit Report Forms: Patient Portal/API, Stroke Signs & Symptoms Discharge Data Primary Care Provider: Jena Perez Discharges patient from system. Discharge Date/Time: 10/07/20 18:15
[2020-10-07 17:25] VITALS: BP 133/90; PULSE 91; RESP 16; TEMP 36.3
== END 2020-10-07 18:15 | disposition home or self-care (01) | DRG 798 ==
PROVIDERS: Anesthesiology; Specialist; Admitting Provider Family Medicine; Family Provider Family Medicine; PCP Family Medicine; Referring Provider Family Medicine; Visit Provider Family Medicine
PROC: 0U570ZZ Destruction of Bilateral Fallopian Tubes, Open Approach (ICD-10-PCS; CPT 58605; principal; 2020-10-07 07:45)
DX: O14.04 Mild to moderate pre-eclampsia, complicating childbirth (principal); Z37.0 Single live birth; Z30.2 Encounter for sterilization; O75.81 Maternal exhaustion complicating labor and delivery; O70.1 Second degree perineal laceration during delivery; O62.1 Secondary uterine inertia; O64.2XX0 Obstructed labor due to face presentation, not applicable or unspecified; O69.81X0 Labor and delivery complicated by cord around neck, without compression, not applicable or unspecified; Z3A.40 40 weeks gestation of pregnancy; Z20.822 Contact with and (suspected) exposure to COVID-19
CPT/HCPCS: 01967; 36415; 58605; 59050; 59200; 59410; 80053; 82570; 84156; 85025; 86850; 86900; 86901; 87635; 99232; C9803; G0379; J0171; J0690; J1885; J2250; J2590; J2704; J3010

== ENCOUNTER → 2022-02-23 14:53 | Outpatient (CLI) | payer MEDICAID, SELFPAY ==
[2022-02-23 16:06] LABS: Influenza A - CEPHEID Flu A POSITIVE (NEGATIVE); Influenza B - CEPHEID Flu B NEGATIVE (NEGATIVE); Respiratory Syncytial Virus Negative (Negative)
[2022-02-23 16:10] LABS: COVID-19 CEPHEID 4-PLEX PCR Negative (Negative)
== END ==
PROVIDERS: Family Provider Family Medicine; PCP Family Medicine; Visit Provider Registered Nurse
DX: J34.89 Other specified disorders of nose and nasal sinuses (principal)
CPT/HCPCS: 0241U

== ENCOUNTER → 2025-02-17 09:08 | Outpatient (CLI) | payer OTHER, SELFPAY ==
[2025-02-17 09:41] LABS: Add Manual Diff / Slide Review NO; Hematocrit 37.0 % (36-46); Hemoglobin 12.5 g/dL (12.0-16.0); Lymphocytes Absolute Auto 1600 /uL (1100-4500); Mean Corpuscular HGB Conc 33.7 % (30-36); Mean Corpuscular Hemoglobin 28.6 PG (26-34); Mean Corpuscular Volume 85.0 fL (80-100); Platelet Count 168 X10^3/uL (150-400)
[2025-02-17 10:25] LABS: Alanine Aminotransferase 16 IU/L (<35); Albumin 4.2 g/dL (3.5-5.0); Albumin Globulin Ratio 1.3 (1.0-2.8); Alkaline Phosphatase 79 U/L (38-126); Blood Urea Nitrogen 11 mg/dL (7-17); Calcium 9.0 mg/dL (8.4-10.2); Carbon Dioxide 29 mmol/L (22-32); Chloride 104 mmol/L (98-107); Cholesterol 175 mg/dL (140-199); Estimated Glomerular Filt Rate > 60 mL/min (>60); Globulin 3.3 g/dL (1.7-4.1); Glucose 85 mg/dL (70-99); HDL Cholesterol 73 mg/dL (40-60); HEMOLYSIS < 15 (0-50); Hemoglobin A1C% w Est Avg Glu 5.1 % (4.0-6.0); Potassium 4.4 mmol/L (3.4-5.1); Sodium 139 mmol/L (137-145); Total Protein 7.5 g/dL (6.3-8.2); Triglycerides 74 mg/dL (35-150)
== END ==
PROVIDERS: Family Provider Family Medicine; PCP Family Medicine; Referring Provider Family Medicine; Visit Provider Family Medicine
DX: Z13.220 Encounter for screening for lipoid disorders (principal); E66.9 Obesity, unspecified; M72.2 Plantar fascial fibromatosis; Z76.89 Persons encountering health services in other specified circumstances
CPT/HCPCS: 36415; 80053; 80061; 83036; 85025